=== PATIENT | male | born 1940 | race Caucasian/White ===

== ENCOUNTER 2020-12-15 10:48 | Outpatient (RCR) | payer MEDICARE, SELFPAY ==
--- NOTE | 2020-12-15 11:37 | PCPTNOTE ---
12/15/20 - spoke with nurse from Dr. Cervantes's office this morning about swelling in the L calf and foot. Nurse reports Dr. Cervantes has been aware of this and they will continue to monitor, but no need for a Doppler or additional testing this date. Patient was informed of this call and results of the call. He was educated on signs and symptoms of any increased or worsening signs of a DVT and when to seek emergency medical care. PratikTF
--- NOTE | 2020-12-22 12:57 | PTOPEVAL ---
Thank you for referring Juanito Singer to [facility].? The patient is scheduled to be seen for therapy? ____x/week for ___ weeks. Please review, sign, date and return this plan of care JUSTIN. I agree with and certify that the following plan of care is medically necessary. Referring Physician Date Admitting Provider: Attending Provider: Selena Valero, PIPE [employer] SAWYER Referring Provider: *PT Outpatient Evaluation Start: 12/15/20 11:02 Freq: Status: Active Protocol: Document 12/15/20 11:00 [facility] (Rec: 12/15/20 12:17 [facility] [id number]) Therapy Assessment Status Assessment Status Assessment Status Evaluation Evaluation Information Problem Diagnosis lumbar radiculopathy, bilateral LE weakness Onset 12/12/20 Additional Evaluation Detail LEFS = 73% functionally declined Subjective Information patient reports he has been Query Text:As Reported By Patient/ having back pain on and off Family for 25 years or so. he reports lately he has been having the most difficulty walking. he reports the longer he walks he has increased pain in the bilateral calves and ankles. he reports the pain will progress to his knees and hips . he reports icnreased tightness in the calves as well as pain. he reports he has had an xray of the spine. he reports he is going in for MRI of the spine next week. he reports he is not diabetic, but will ocassionally get pins and needles in his feet. he reports he has had pins and needles in his hands. he reports he is unable to walk long distance, go up and down stairs without using a rail, and reports overall stiffness and weakness. he reports trouble with navigating on uneven surface. Prior Level of Function Comments Additional Prior Level of Function he reports he has been Comments progressively getting worse for about 10 years. he reports he is unable to enjoy golf and recreational activities as
--- NOTE | 2021-01-12 09:37 | PTOPEVAL ---
Thank you for referring Juanito Singer to [facility].? The patient is scheduled to be seen for therapy? ____x/week for ___ weeks. Please review, sign, date and return this plan of care JUSTIN. I agree with and certify that the following plan of care is medically necessary. Referring Physician Date Admitting Provider: Attending Provider: Selena Valero, EDGE STITCHER Referring Provider: *PT Outpatient Evaluation Start: 12/15/20 11:02 Freq: Status: Active Protocol: Document 01/12/21 08:33 [facility] (Rec: 01/12/21 09:37 [facility] [id number][facility] Evaluation Information Problem Diagnosis lumbar radiculopathy, bilateral LE weakness Onset 12/12/20 Additional Evaluation Detail LEFS = 68% functionally declined Subjective Information patient reports his back has Query Text:As Reported By Patient/ been doing better, but he has Family been having more issues with his L hip recently. he reports he has a new order to look at his hip. he reports pain down the side and back of his L hip into the back of his L thigh. he reports he has pain all the time. he reports no groin pain ever. he reports he was able to play 5 holes of golf without his hip flaring up. Pain Assessment Timing of Pain Assessment Timing of Pain Assessment Assessment Pain Scale Pain Scale Used Numeric (1 - 10) Self Report Pain Assessment Left Hip(s) Reported Pain Level 7 Greatest Pain Intensity 9 Lower Back Reported Pain Level 0 Bilateral Leg(s) Reported Pain Level 3 Pain Score Pain Score 7,0,3: Self Report Interventions Used Interventions Used By Clinicians Activity or ADL's,Education, Exercise Cervical and Lumbar ROM Lumbar ROM Lumbar Flexion Active Mid Story Query Text:Hands to: Lumbar Extension (0-40) 10 Query Text:Active in Degrees Lumbar Lateral Flexion Right (0-40) 30 Query Text:Active in Degrees Lumbar Lateral Flexion Left (0-40) 30 Query Text:Active in Degrees Lower Extremity Muscle Strength Testing General Lower Extremity Strength Gross Lower Extremity Strength 4-/5 L hip flex 4/5 R hip flex 4-/5 bilateral hip abd ( patient reports more difficulty/weakness in the L
== END 2021-01-25 09:18 | disposition home or self-care (01) ==
LOC: CHSPT 10:48
PROVIDERS: Visit Provider Nurse Practitioner Family
DX: M54.16 Radiculopathy, lumbar region (principal); R26.89 Other abnormalities of gait and mobility; R29.898 Other symptoms and signs involving the musculoskeletal system
CPT/HCPCS: 97014; 97110; 97161; 97530; G0283

== ENCOUNTER 2022-06-25 08:47 | Outpatient (RCR) | payer MEDICARE, SELFPAY ==
--- NOTE | 2022-06-25 10:00 | PTOPEVAL1 ---
Assessment and note entered by Lissette Chavez, PT Evaluation Information Assessment Status Evaluation Diagnosis Imbalance Onset 06/20/22 Subjective Information Juanito Singer reports he has had one fall about a week ago when he tripped over something. He reports he has been feeling wobbly and off balance for about 2.5 years. He reports he had a brain bleed due to a head injury about one year ago. He was in the hospital for 4-5 days but he did not have to have surgery. He reports his balance has progressively worsened since then. He is not using an assistive device at this time. He notes he has more difficulty with walking on high grass, over rocks, up an incline, and up and down stairs. He notes he has to use a rail when going up/down stairs and ramps. He has steps in his home and has a rail on both sides. He lives with his . Reported Pain Level Pain Score 0: Self Report Assessment PT Clinical Summary Juanito Singer presents with decreased balance with one fall a week ago and history of a brain bleed approximately one year ago. He has difficulty with stairs, ramps, walking on rocks, and walking in high grass. He objectively demonstrates decreased core/hip strength bilaterally, decreased left ankle strength, decreased bilateral gastrocnemius and soleus flexibility, poor static and dynamic balance, and impaired gait. Scores on standard balance tests indicate he is a high fall risk. He will benefit from skilled PT to address these limitations. Plan of Care Interventions Gait Training,Neuro Re-education,Patient/Caregiver Educati,Therapeutic Activities,Therapeutic Exercise PT Services Indicated Yes Treatment Frequency and 2 times a week for 8 visits Duration These treatments will address the objective and functional deficits as defined above. The patient will be advanced safely and appropriately in order for the patient to progress towards his/her prior level of function. Additional exercises will be introduced and as well as a comprehensive home exercise program upon discharge, if needed, ?to ensure carryover of functional gains achieved in the clinic. This treatment plan has been reviewed and agreement upon by the patient.
== END 2022-07-24 10:52 | disposition home or self-care (01) ==
LOC: CHSPT 08:47
PROVIDERS: PCP Internal Medicine; Visit Provider Internal Medicine
DX: R26.89 Other abnormalities of gait and mobility (principal)
CPT/HCPCS: 97110; 97112; 97161

== ENCOUNTER 2023-03-06 09:55 | Outpatient (NON) | payer MEDICARE, SELFPAY ==
[2023-03-06 10:25] LABS: Hemoglobin A1C 6.2 % (<5.7)
[2023-03-06 10:29] LABS: Alanine Aminotransferase 31 U/L (16-63); Albumin Level 3.4 g/dL (3.4-5.0); Alkaline Phosphatase 86 U/L (46-116); Anion Gap 5 mmol/L (8-16); Aspartate Amino Transferase 16 U/L (15-37); Bilirubin,Total 0.7 mg/dL (0.00-1.00); Blood Urea Nitrogen 20 mg/dL (7-18); Calcium 9.1 mg/dL (8.5-10.1); Carbon Dioxide 31 mmol/L (21-32); Chloride 107 mmol/L (98-108); Estimated Glomerular Filt Rate 58; Glucose 94 mg/dL (70-99); Osmolality Calculated 298 mOsm/kg (285-295); Potassium 4.3 mmol/L (3.5-5.1); Sodium 143 mmol/L (136-145); Total Protein 6.9 g/dL (6.4-8.2)
== END 2023-03-06 09:56 | disposition home or self-care (01) ==
LOC: CHSHH 09:56
PROVIDERS: Visit Provider Family Medicine
DX: R73.01 Impaired fasting glucose (principal)
CPT/HCPCS: 36415; 80053; 83036

== ENCOUNTER 2023-06-17 08:30 | Outpatient (RCR) | payer MEDICARE, SELFPAY ==
--- NOTE | 2023-03-20 15:15 | PTOPEVAL1 ---
Assessment and note entered by Lissette Chavez, PT Evaluation Information Assessment Status Evaluation Diagnosis CVA, imbalance Subjective Information Juanito Singer reports he had a stroke on 01/25/23. He was taken to [facility] in [place] and spent 6 days there. He then went to [facility] for 13 days and finally went home and had speech, OT, and PT until last week. He is having vision problems more on the right side. He also has weakness in his legs and difficulty with his ability to maneuver his legs. He has to use a walker to walk which he did not use prior to the stroke. He denies falls since being home but does report problems with his balance. Reported Pain Level Pain Score 0: Self Report Assessment PT Clinical Summary Juanito Singer presents with with weakness and decreased balance following a CVA on 01/25/23. He has difficulty with balance and walking. He objectively demonstrates decreased L > R LE strength, decreased core strength, impaired gait, and decreased balance. His Tinetti Balance score indicates he is a high fall risk. He will benefit from skilled PT to address these limitations and improve his daily function. Plan of Care Interventions Gait Training,Neuro Re-education,Patient/Caregiver Educati,Therapeutic Activities,Therapeutic Exercise PT Services Indicated Yes Treatment Frequency and 2 times a week for 16 visits Duration These treatments will address the objective and functional deficits as defined above. The patient will be advanced safely and appropriately in order for the patient to progress towards his/her prior level of function. Additional exercises will be introduced and as well as a comprehensive home exercise program upon discharge, if needed, ?to ensure carryover of functional gains achieved in the clinic. This treatment plan has been reviewed and agreement upon by the patient.
--- NOTE | 2023-03-20 15:16 | OPREHPOC ---
Outpatient Therapy Plan of Care This is a Multidisciplinary Plan of Care that may contain components documented by all disciplines (PT, OT, and ST.) PT Problem 1 PT Problem #1 Knowledge Deficit PT Goal 1 Goal The patient will demonstrate independence in a home exercise program to continue after discharge from formal PT. Target Visit 10 PT Problem 2 PT Problem #2 Impaired Safety Awareness PT Goal 1 Goal The patient will improve the Tinettti Balance Scale by 6 points to improve safety and demonstrate a decreased fall risk. Target Visit 16 PT Problem 3 PT Problem #3 Impaired Endurance PT Goal 1 Goal The patient will improve distance on the 6 minute walk test to 1,000 feet with the least restrictive device to improve community ambulation. Target Visit 16 PT Problem 4 PT Problem #4 Impaired Gait PT Goal 1 Goal The patient will be able to ambulate a small base or straight cane independently on level surface and grass. Target Visit 16
--- NOTE | 2023-03-25 16:14 | BUOTOPEVAL ---
Assessment and note entered by Bindu Vang, OT Evaluation Information Assessment Status Evaluation Diagnosis CVA Onset January 25, 2023 Subjective Information The patient reports that he has no pain but experiences numbness and tingling in all fingers of R hand and digits 3-5 of L hand due to ulnar nerve surgery a year ago. The patient stated that he used to do a little bit of cooking and does not do so anymore and he gets worn out easily throughout the day. Reported Pain Level Pain Score 0: Self Report Pain Score 0: Self Report Pain Score 0: Self Report Assessment OT Clinical Summary The patient is an 82 year old male who was referred to outpatient OT due to CVA resulting in UE weakness, cognition deficits, and low endurance . The patient previously did not experience any difficulties with endurance, cognition, or weakness. The patient now demonstrates minimally impaired memory and recall, moderately impaired endurance, and minimal UE weakness with impaired aquatic physiotherapist and fine motor coordination of R UE. The patient requires skilled OT to address these deficits and return to PLOF of independence with all ADLs/IADLs. Plan of Care Interventions Therapeutic Exercise,Manual Therapy,Neuro Re- education,Therapeutic Activities,Hot Pack/Cold Pack,Cognitive Function,Self-Care/Home Management OT Services Indicated Yes Treatment Frequency and 2x/week for 10 visits. Duration These treatments will address the objective and functional deficits as defined above. The patient will be advanced safely and appropriately in order for the patient to progress towards his/her prior level of function. Additional exercises will be introduced and as well as a comprehensive home exercise program upon discharge, if needed, ?to ensure carryover of functional gains achieved in the clinic. This treatment plan has been reviewed and agreement upon by the patient.
--- NOTE | 2023-04-08 16:08 | BUSTOPEVAL1 ---
Assessment and note entered by Sierra Blackwell, RN STARS Evaluation Information Assessment Status Evaluation Diagnosis Asphasia R47.01 Subjective Information Patient reported that his biggest concerns for speech therapy is his brain, finding the words he wants to say and his memory. He reported that he has seen some improvements in his speech and language abilities since having the CVA. Reported Pain Level Pain Score 0: Self Report Pain Score 0: Self Report Pain Score 0: Self Report Pain Score 0: Self Report Pain Score 0: Self Report Pain Score 0: Self Report Pain Score 0: Self Report Pain Score 0: Self Report Pain Score 0: Self Report Pain Score 0: Self Report Pain Score 0: Self Report Additional Pain Score Comments Pt. has no c/o pain at beginning of session. Assessment ST Clinical Summary Patient was referred for an ST evaluation by his doctor due to continued difficulties with cognition and speech post CVA in January of 2023. The patient reported that he continued to struggle with his memory and finding the words he wants to say. He often gets off track with his train of thought. During conversation with the patient he frequently would get off track with his story and required some redirection to improve skills. The SLUMS was used to assess the patient's cognitive skills with a score of 11/30. Auditory comprehension, reading comprehension and verbal expression were also assessed. The patient presented with difficulty recalling 5 words presented with a 5 minute or less delay in presentation. The patient presented with difficulty recalling details of paragraphs read outloud (simple and moderate complexity), completing simple functional math questions, divergent naming, confrontational naming and reading comprehension at the 5-7 word level. Recommendation for ST to target areas to improve overall cognitive-communication skills to improve his ability to return to prior level with function with the least amount of assistance. Recommendation for st 2x/week for 10 sessions for treatment of aphasia R47.01. Plan of Care Interventions
--- NOTE | 2023-05-02 08:51 | OPREHPOC ---
Outpatient Therapy Plan of Care This is a Multidisciplinary Plan of Care that may contain components documented by all disciplines (PT, OT, and ST.) PT Problem 1 PT Problem #1 Knowledge Deficit PT Goal 1 Goal The patient will demonstrate independence in a home exercise program to continue after discharge from formal PT. Target Visit 10 Progress Met PT Problem 2 PT Problem #2 Impaired Safety Awareness PT Goal 1 Goal The patient will improve the Tinettti Balance Scale by 6 points to improve safety and demonstrate a decreased fall risk. Target Visit 16 Comment improved PT Problem 3 PT Problem #3 Impaired Endurance PT Goal 1 Goal The patient will improve distance on the 6 minute walk test to 1,000 feet with the least restrictive device to improve community ambulation. Target Visit 16 Comment continue PT Problem 4 PT Problem #4 Impaired Gait PT Goal 1 Goal The patient will be able to ambulate a small base or straight cane independently on level surface and grass. Target Visit 16 Comment progressing OT Problem 1 OT Problem #1 Knowledge Deficit OT Goal 1 Goal The patient will demonstrate 100% knowledge of UE HEP to improve and maintain UE function. Target Visit 10 OT Problem 2 OT Problem #2 Impaired Coordination OT Goal 1 Goal The patient will demonstrate increased fine motor coordination by scoring <35 seconds on 9-hole peg test in order to perform homemaking tasks. Target Visit 10 OT Problem 3 OT Problem #3 Impaired Strength OT Goal 1 Goal The patient will demonstrate increased UE professor/nurse anesthetist strength with >63 lbs of professor/nurse anesthetist strength of R UE in order to perform homemaking tasks. Target Visit 10 OT Problem 4 OT Problem #4 Impaired Endurance OT Goal 1 Goal The patient will demonstrate increased endurance by completing 20 minute aerobic activities without visible signs of fatigue in order to cook a meal
--- NOTE | 2023-05-02 08:51 | PTOPREEVAL ---
Assessment and note entered by Laurence Lambert DPT Evaluation Information Assessment Status Re-evaluation Diagnosis CVA, imbalance Subjective Information Patient reports he feels stronger since start of PT. He reports he has been able to walk short distances without AD but feels that he is unsteady . He reports he has not had any falls. He reports he fatigues with prolonged ambulation Reported Pain Level Pain Score 0: Self Report Pain Score 0: Self Report Assessment PT Clinical Summary Mr. Singer has attended 10 visits of skilled PT with good progress towards goals. He demonstrates improved Tinetti and 5xSTS indicated decreased fall risk. He also demonstrates improved LE strength with reports of feeling stronger. He continues to be a fall risk and has difficulty with prolonged activity. He would benefit from continued skilled PT to address remaining impairments and return to PLOF. Plan of Care Interventions Gait Training,Neuro Re-education,Patient/Caregiver Educati,Therapeutic Activities,Therapeutic Exercise PT Services Indicated Yes Treatment Frequency and continue 2x weekly for remaining 6 visits Duration These treatments will address the objective and functional deficits as defined above. The patient will be advanced safely and appropriately in order for the patient to progress towards his/her prior level of function. Additional exercises will be introduced and as well as a comprehensive home exercise program upon discharge, if needed, ?to ensure carryover of functional gains achieved in the clinic. This treatment plan has been reviewed and agreement upon by the patient.
--- NOTE | 2023-05-02 16:17 | BUOTOPEVAL ---
Assessment and note entered by Bindu Vang, OT Evaluation Information Assessment Status Progress Diagnosis CVA Onset January 25, 2023 Subjective Information The patient stated that he thinks he has gotten stronger but his mind is still having troubles. The patient stated he wishes his head would get better. Reported Pain Level Pain Score 0: Self Report Pain Score 0: Self Report Pain Score 0: Self Report Pain Score 0: Self Report Pain Score 0: Self Report Pain Score 0: Self Report Pain Score 0: Self Report Pain Score 0: Self Report Pain Score 0: Self Report Pain Score 0: Self Report Pain Score 0: Self Report Pain Score 0: Self Report Pain Score 0: Self Report Pain Score 0: Self Report Pain Score 0: Self Report Pain Score 0: Self Report Pain Score 0: Self Report Pain Score 0: Self Report Pain Score 0: Self Report Pain Score 0: Self Report Pain Score 0: Self Report Pain Score 0: Self Report Pain Score 0: Self Report Pain Score 0: Self Report Pain Score 0: Self Report Additional Pain Score Comments Pt. reports some discomfort in his stomach at different time throughout the week, but claims it comes and go. Additional Pain Score Comments Pt. has no c/o pain at beginning of session. Assessment OT Clinical Summary The patient demonstrates significant progress in UE roll setter/pinch strength, endurance, and fine motor coordination affecting his ability to complete tasks around his home to [facility] independence. The patient continues to demonstrate decreased cognition that affect safety and independence at home. The patient continues to demonstrate difficulties with cognition, UE endurance, roll setter strength that affect his ability to return to PLOF . Plan of Care Interventions T
--- NOTE | 2023-05-23 10:08 | OPREHPOC ---
Outpatient Therapy Plan of Care This is a Multidisciplinary Plan of Care that may contain components documented by all disciplines (PT, OT, and ST.) PT Problem 1 PT Problem #1 Knowledge Deficit PT Goal 1 Goal The patient will demonstrate independence in a home exercise program to continue after discharge from formal PT. Target Visit 10 Progress Met PT Problem 2 PT Problem #2 Impaired Safety Awareness PT Goal 1 Goal The patient will improve the Tinettti Balance Scale by 6 points to improve safety and demonstrate a decreased fall risk. Target Visit 16 Progress Not Met Comment 23 pts PT Problem 3 PT Problem #3 Impaired Endurance PT Goal 1 Goal The patient will improve distance on the 6 minute walk test to 1,000 feet with the least restrictive device to improve community ambulation. Target Visit 16 Progress Not Met Comment . PT Problem 4 PT Problem #4 Impaired Gait PT Goal 1 Goal The patient will be able to ambulate a small base or straight cane independently on level surface and grass. Target Visit 16 Progress Partially Met Comment . OT Problem 1 OT Problem #1 Knowledge Deficit OT Goal 1 Goal The patient will demonstrate 100% knowledge of UE HEP to improve and maintain UE function. Target Visit 10 Progress Partially Met OT Problem 2 OT Problem #2 Impaired Coordination OT Goal 1 Goal The patient will demonstrate increased fine motor coordination by scoring <35 seconds on 9-hole peg test in order to perform homemaking tasks. Target Visit 10 Progress Partially Met Comment 37 OT Problem 3 OT Problem #3 Impaired Strength OT Goal 1 Goal The patient will demonstrate increased UE waste and batting waste chopper strength with >63 lbs of waste and batting waste chopper strength of R UE in order to perform home
--- NOTE | 2023-05-23 10:08 | PTOPDC ---
Assessment and note entered by Laurence Lambert DPT Evaluation Information Assessment Status Re-evaluation Diagnosis CVA, imbalance Subjective Information Patient reports he has not had any falls or any pain. He reports he feels like he is doing well with PT. Reported Pain Level Pain Score 0: Self Report Pain Score 0: Self Report Pain Score 0: Self Report Pain Score 0: Self Report Assessment PT Clinical Summary Patient was seen for 16 visits of skilled PT with good progress towards all goals. He denies falls or pain since start of PT. He has platued with functional testing at this time but has shown great improvment since start of care with improve strength and decreased fall risk. Patient was given updated HEP handout this date. He is appropriate and agreeable to DC at this time. Plan of Care PT Services Indicated No
--- NOTE | 2023-05-29 12:23 | STOPPROG ---
Assessment and note entered by Sierra Blackwell, AUDIT CONTROL CLERK Evaluation Information Assessment Status Progress Diagnosis Asphasia R47.01 Onset January 25, 2023 Subjective Information Patient has completed a total of [address] sessions for the treatment of Asphasia R47.01 since the evaluation was completed on 04-08-23. Patient reported that his biggest concerns for speech therapy is his brain, finding the words he wants to say and his memory. He continues to see progression in overall cognitive/communication skills through use of strategies, exercises and compensatory techniques. Assessment ST Clinical Summary Patient was referred for an ST evaluation by his doctor due to continued difficulties with cognition and speech post CVA in January of 2023. The patient has completed at total of [address] treatment sessions since the evaluation on 04-08-23 . He has reported some improvements in cognitive communications skills but he is not where he wants to be with overall skills at this point in time. The SLUMS was used to reassess the patient's cognitive skills with a score of 15/30 (score of 11/30 on 04-08-23). Through testing patient continues to demonstrate significant difficulty in short term memory skills with 0/5 words recalled with delay in presentation and 2/8 details recalled from moderate level complexity paragraph. The patient presented with difficulty recalling 5 words presented with a 5 minute or less delay in presentation. The patient presents with some difficulty completing simple functional math questions (60% accuracy with moderate cues), divergent naming (50% accuracy), confrontational naming (60-70% accuracy) and reading comprehension at the 5-7 word level (66% accuracy with moderate cues). Recommendation for skilled ST to continue to target areas to improve overall cognitive- communication skills to improve his ability to return to prior level with function with the least amount of assistance. Recommendation for ST 2x/ week for 10 sessions for treatment of aphasia R47. 01. Plan of Care Interventions Treatment of Speech,Treatment of Language, Treatment for Cognitive F ST Services Indicated Yes Treatment Frequency and 2x/week for 10 sessions Duration These treatments wi
--- NOTE | 2023-06-09 14:27 | BUOTOPDC ---
Assessment and note entered by Bindu Vang, OT Evaluation Information Assessment Status Discharge Diagnosis CVA Onset January 25, 2023 Subjective Information The patient stated that he thinks he has gotten stronger but his mind is still having troubles. The patient stated he wishes his head would get better. Reported Pain Level Pain Score 0: Self Report Pain Score 0: Self Report Pain Score 0: Self Report Pain Score 0: Self Report Pain Score 0: Self Report Pain Score 0: Self Report Pain Score 0: Self Report Pain Score 0: Self Report Pain Score 0: Self Report Pain Score 0: Self Report Pain Score 0: Self Report Pain Score 0: Self Report Pain Score 0: Self Report Pain Score 0: Self Report Pain Score 0: Self Report Pain Score 4: Self Report Pain Score 0: Self Report Pain Score 0: Self Report Pain Score 0: Self Report Pain Score 0: Self Report Pain Score 0: Self Report Pain Score 0: Self Report Pain Score 0: Self Report Pain Score 0: Self Report Pain Score 0: Self Report Pain Score 0: Self Report Pain Score 0: Self Report Pain Score 0: Self Report Pain Score 0: Self Report Pain Score 0: Self Report Pain Score 0: Self Report Pain Score 0: Self Report Pain Score 0: Self Report Pain Score 0: Self Report Pain Score 0: Self Report Pain Score 0: Self Report Pain Score 0: Self Report Pain Score 0: Self Report Pain Score 0: Self Report Pain Score 0: Self Report
--- NOTE | 2023-06-09 14:28 | OTOPDC ---
Assessment and note entered by Bindu Vang OT Evaluation Information Assessment Status Discharge Reported Pain Level Pain Score 0: Self Report Assessment OT Clinical Summary The patient demonstrates significantly improved UE strength/endurance as well as aerobic activity tolerance, increased home health rn/pinch strength and fine motor coordination that affect his ability to engage in ADLs with independence without dropping items during activities. The patient continues to demonstrate decreased cognitive function following CVA which is being addressed by speech therapy at this time. The patient demonstrates significant improvement in function of UE, ability to engage in aerobic activit for increased time and increase home health rn strength for daily tasks. The patient demonstrates 100% knowledge of UE HEP to maintain strength at home and was educated on the importance of engaging in exercises following discharge. The patient has met most goals and will continue to address cognition with speech therapy . The patient is discharged with UE HEP. Plan of Care OT Services Indicated No
--- NOTE | 2023-06-19 16:01 | PCSTNOTE ---
This treatment is being continued on visit number [id number]. Please see documentation on both accounts to view progress. Completed interventions, outcomes, and problems have been marked as Inactive to facilitate the copying of the Care plan routine for recurring accounts.
== END 2023-09-23 12:59 | disposition home or self-care (01) ==
LOC: CHSST 08:30
PROVIDERS: PCP Family Medicine; Visit Provider Family Medicine
DX: R47.01 Aphasia (principal); R26.89 Other abnormalities of gait and mobility
CPT/HCPCS: 92507; 92523; 96125; 97110; 97112; 97129; 97130; 97140; 97161; 97165; 97530; 97535; 97750

== ENCOUNTER 2023-09-16 09:00 | Outpatient (RCR) | payer MEDICARE, SELFPAY ==
--- NOTE | 2023-06-19 16:01 | PCSTNOTE ---
The treatment documented on this account is a continuation of the treatment documented on visit number [id number]. Please see documentation on both accounts to view progress. The Plan of Care has been transitioned and updated within the new A#. I have addressed and agree with the discipline specific Problems, Interventions, and Goals for the current certification period. Completed interventions, outcomes, and problems have been marked as Inactive to facilitate the copying of the Care plan routine for recurring accounts.
[2023-06-26 14:00] VITALS: O2SAT 75
--- NOTE | 2023-07-03 15:28 | STOPPROG ---
Assessment and note entered by Sierra Blackwell, SECONDARY MARKET MANAGER Evaluation Information Assessment Status Progress Diagnosis Asphasia R47.01 Onset January 25, 2023 Subjective Information Patient has completed a total of [address] sessions for the treatment of Asphasia R47.01 since the previous progress report that was written on 05-29-23. Patient reported that he still has concerns with his word finding skills, visual skills in the right eye, short term memory and thought organization. He reported that recently several people have mentioned that they have seen improvements in his overall cognitive- communication skills including his . He continues to see progression in overall cognitive/ communication skills through use of strategies, exercises and compensatory techniques. Assessment ST Clinical Summary Patient was referred for an ST evaluation by his doctor due to continued difficulties with cognition and speech post CVA in January of 2023. The patient has completed at total of [address] treatment sessions since the previous progress report written on 05-29-23. He continues to see improvements in cognitive-communications skills but he does not feel he is where he wants to be. Through treatment the patient continues to demonstrate difficulty in short term memory skills with 60% accuracy independently recalling items and 100% accuracy through phonemic cues. The patient continues to require increased time and cues to recall items, paragraphs and pictures. Patient continues to demonstrate improvements in word finding skills, reading comprehension skills (completing 7-11 word sentences with 75% accuracy) , and thought organization tasks (70% accuracy). Recommendation for skilled ST to continue to target areas to improve overall cognitive- communication skills to improve his ability to return to prior level of function with the least amount of assistance. Recommendation for ST 1x/ week for 10 sessions for treatment of aphasia R47. 01. Plan of Care Interventions Treatment of Speech,Treatment of Language, Treatment for Cognitive F ST Services Indicated Yes Treatment Frequency and 1x/week for 10 sessions Duration These treatments will address the objective and functional deficits as defined above. The patient will
[2023-07-07 10:00] VITALS: O2SAT 80
[2023-07-22 14:10] VITALS: O2SAT 90
[2023-07-29 09:00] VITALS: O2SAT 70
[2023-08-05 09:00] VITALS: O2SAT 90
[2023-08-14 15:00] VITALS: O2SAT 80
[2023-08-25 10:00] VITALS: O2SAT 80
--- NOTE | 2023-09-02 14:36 | PCSTNOTE ---
Patient called and cancelled due to weather.
[2023-09-16 09:00] VITALS: O2SAT 80
--- NOTE | 2023-09-23 08:49 | PCSTNOTE ---
This treatment is being continued on visit number [id number]. Please see documentation on both accounts to view progress. Completed interventions, outcomes, and problems have been marked as Inactive to facilitate the copying of the Care plan routine for recurring accounts.
== END 2023-09-22 23:59 | disposition home or self-care (01) ==
LOC: CHSST 09:00
PROVIDERS: PCP Family Medicine; Visit Provider Family Medicine
DX: R47.01 Aphasia (principal); R26.89 Other abnormalities of gait and mobility
CPT/HCPCS: 92507

== ENCOUNTER 2023-09-23 08:00 | Outpatient (RCR) | payer MEDICARE, SELFPAY ==
[2023-09-23 00:01] VITALS: O2SAT 80
--- NOTE | 2023-09-23 08:50 | PCSTNOTE ---
The treatment documented on this account is a continuation of the treatment documented on visit number [id number]. Please see documentation on both accounts to view progress. The Plan of Care has been transitioned and updated within the new A#. I have addressed and agree with the discipline specific Problems, Interventions, and Goals for the current certification period. Completed interventions, outcomes, and problems have been marked as Inactive to facilitate the copying of the Care plan routine for recurring accounts.
[2023-09-23 09:00] VITALS: O2SAT 85
--- NOTE | 2023-09-23 10:50 | BUSTOPDC ---
Assessment and note entered by Sierra Blackwell, [employer] Evaluation Information Assessment Status Progress Diagnosis Asphasia R47.01 Subjective Information Patient has completed a total of [address] sessions for the treatment of Asphasia R47.01 since the previous progress report that was written on 07-03-23. Patient reported that he has seen continued slow and gradual improvements in his word finding skills, visual skills in the right eye, short term memory and thought organization but continues to have some difficulty . He continues to see progression in overall cognitive/communication skills through use of strategies, exercises and compensatory techniques. Reported Pain Level Pain Score 6: Self Report Pain Score 0: Self Report Additional Pain Score Comments Patient reported that he gets this pain in his stomach occasionally. Additional Pain Score Comments Pt. reports some discomfort in his stomach at different time throughout the week, but claims it comes and go. Assessment ST Clinical Summary Patient was referred for an ST evaluation by his doctor due to continued difficulties with cognition and speech post CVA in January of 2023. The patient has completed at total of [address] treatment sessions since the previous progress report written on 07-03-23. He continues to see improvements in cognitive-communications skills that have been gradual. He feels that he will be able to continue to target skills at home through reading, conversations with others, word searches, and tasks sent home by [employer]. The SLUMS was re- administered during the session and scores are below: 1130 (--23), 1530 (--23), READMINISTERED 1730 (2--24) Patient will be discharged from at this time due to reaching max rehab potential at this time. Patient and are very happy with progress that has been made and are ready for patient to be discharged. Homework sent home for patient to continue to target to improve cognitive- communication skills. Plan of Care Interventions Treatment of Speech,Treatment of Language, Treatment for Cognitive F Interventions Treatment of Speech,Treatment of Language, Treatment for Cognitive F Treatment Frequency and
== END 2023-09-23 19:00 | disposition home or self-care (01) ==
LOC: CHSST 08:00
PROVIDERS: PCP Family Medicine; Visit Provider Family Medicine
DX: R47.01 Aphasia (principal); R26.89 Other abnormalities of gait and mobility
CPT/HCPCS: 92507

== ENCOUNTER 2024-08-03 09:52 | Outpatient (RCR) | payer MEDICARE, SELFPAY ==
--- NOTE | 2024-08-03 11:05 | PTOPEVAL1 ---
Assessment and note entered by Laurence Travis DPT Evaluation Information Assessment Status Evaluation Diagnosis falls ICD-10 Condition Codes (PT) Repeated falls R29.6 Onset 07/29/24 Subjective Information Patient reports about 2 months ago he lost his balance and fell. He reports he did not have any injuries but has since has lost confidence and feels his balance is impaired. Since fall he has been using a rollator. His goal for therapy is to walk comfortably without fear of falling. He reports he also feels weak getting up and down out of a chair. He has been seen in PT previously for strength and balance following CVA. Reported Pain Level Pain Score 0: Self Report Assessment PT Clinical Summary Mr. Singer is a 84 year old female who presents to PT s/p fall out in the community. Patient demonstrates B LE weakness, impaired balance and impaired gait mechanics. He demonstrates deficits in 6 min walk test, TUG, 5TSTS and Tinetti balance test indicating high risk for fall. He would benefit from skilled PT to address impairments and return to PLOF. Plan of Care Interventions Gait Training,Hot Pack/Cold Pack,Neuro Re- education,Therapeutic Activities,Therapeutic Exercise PT Services Indicated Yes Treatment Frequency and 2x weekly for 12 visits Duration These treatments will address the objective and functional deficits as defined above. The patient will be advanced safely and appropriately in order for the patient to progress towards his/her prior level of function. Additional exercises will be introduced and as well as a comprehensive home exercise program upon discharge, if needed, ?to ensure carryover of functional gains achieved in the clinic. This treatment plan has been reviewed and agreement upon by the patient.
--- NOTE | 2024-09-21 09:00 | OPREHPOC ---
Outpatient Therapy Plan of Care This is a Multidisciplinary Plan of Care that may contain components documented by all disciplines (PT, OT, and ST.) PT Problem 1 PT Problem #1 Knowledge Deficit PT Goal 1 Goal / Goal Update Patient to demonstrate independence with HEP Target Visit 6 Progress Not Met PT Goal 2 Goal / Goal Update continue PT Problem 2 PT Problem #2 Impaired Strength PT Goal 1 Goal / Goal Update Patient to demonstrate 5/5 B LE strength to improve ability to get up out of chair at PLOF Target Visit 12 Progress Not Met PT Goal 2 Goal / Goal Update continue PT Problem 3 PT Problem #3 Impaired Functional Mobility PT Goal 1 Goal / Goal Update 1. Patient to complete TUG in <15 seconds 2. Patient to complete 5TSTS in <15 seconds to decrease house hold fall risk 3. Patient to complete 800' during 6 min walk test to return to house hold and community ambulation at PLOF 4. Patient to report no falls since start of care Target Visit 12 Progress Not Met PT Goal 2 Goal / Goal Update Continue
--- NOTE | 2024-09-21 09:00 | PTOPPROG ---
Assessment and note entered by Lissette Chavez, PT Evaluation Information Assessment Status Progress Diagnosis Falls ICD-10 Condition Codes (PT) Repeated falls R29.6 Onset 07/29/24 Subjective Information Juanito Singer reports he got sick with the flu and has not been able to come to PT the last month. He reports he continues to have balance issues and he has not been exercising. He still has difficulty getting up from chairs and navigating stairs. He has been using a rollator walker and cane to assist with balance when he walks. Assessment PT Clinical Summary Juanito Singer presents with decreased balance and a history of falls. He returns to PT today after being out the last month sick. He continues to have decreased balance, trouble getting out of chairs, and difficulty walking. He demonstrates decreased left > right LE strength, decreased balance, and impaired gait. He is currently a high fall risk. He will benefit from skilled PT to address these limitations. Plan of Care Interventions Neuro Re-education,Patient/Caregiver Education, Therapeutic Activities,Therapeutic Exercise PT Services Indicated Yes Treatment Frequency and 2 times a week for 10 visits Duration These treatments will address the objective and functional deficits as defined above. The patient will be advanced safely and appropriately in order for the patient to progress towards his/her prior level of function. Additional exercises will be introduced and as well as a comprehensive home exercise program upon discharge, if needed, ?to ensure carryover of functional gains achieved in the clinic. This treatment plan has been reviewed and agreement upon by the patient.
--- NOTE | 2024-10-28 10:55 | OPREHPOC ---
Outpatient Therapy Plan of Care This is a Multidisciplinary Plan of Care that may contain components documented by all disciplines (PT, OT, and ST.) PT Problem 1 PT Problem #1 Knowledge Deficit PT Goal 1 Goal / Goal Update Patient to demonstrate independence with HEP Target Visit 6 Progress Met PT Goal 2 Goal / Goal Update . PT Problem 2 PT Problem #2 Impaired Strength PT Goal 1 Goal / Goal Update Patient to demonstrate 5/5 B LE strength to improve ability to get up out of chair at PLOF Target Visit 12 Progress Not Met PT Goal 2 Goal / Goal Update . PT Problem 3 PT Problem #3 Impaired Functional Mobility PT Goal 1 Goal / Goal Update 1. Patient to complete TUG in <15 seconds. not met 2. Patient to complete 5TSTS in <15 seconds to decrease house hold fall risk. not met 3. Patient to complete 800' during 6 min walk test to return to house hold and community ambulation at PLOF. not met 4. Patient to report no falls since start of care. met Target Visit 12 Progress Not Met PT Goal 2 Goal / Goal Update .
--- NOTE | 2024-10-28 10:55 | PTOPDC ---
Assessment and note entered by JT File, PT Evaluation Information Assessment Status Discharge Diagnosis Falls ICD-10 Condition Codes (PT) Repeated falls R29.6 Onset 07/29/24 Subjective Information patient reports he feels Good today. he reports he has no pain. he reports he has had no falls since beginning therapy. Reported Pain Level Pain Score 0: Self Report Assessment PT Clinical Summary mr. ortiz presents to skilled PT for his 12th skilled visit. he presents today with continued fall risk per the 5x sit to stand and TUG. he also displays continued decreased gait efficiency on his 6 minute walk test. due to a lack of significant improvement of change with skilled PT, patient will be DC'd from skilled therapy services. he is advised to attend fall prevention class 2x weekly to maintain his current strength, balance, and functional activity performance. Plan of Care PT Services Indicated Yes
== END 2024-10-28 11:12 | disposition home or self-care (01) ==
LOC: CHSPT 09:52
PROVIDERS: Visit Provider Family Medicine
DX: R26.89 Other abnormalities of gait and mobility (principal); R29.6 Repeated falls
CPT/HCPCS: 97110; 97112; 97150; 97161; 97530; 97750